=== PATIENT | male | born 1950 | race Caucasian/White ===

== ENCOUNTER → 2017-07-06 | Outpatient (CLI) | payer OTHER, MEDICARE ==
[~2017-07-06] MED LIST: GADOBUTROL 10 ML VIAL IVP ONE
== END ==
LOC: FIMAGING 12:30
PROVIDERS: ATTEND Ophthalmology Pediatric Ophthalmology and Strabismus Specialist
DX: R90.82 White matter disease, unspecified (principal); I73.9 Peripheral vascular disease, unspecified; G31.9 Degenerative disease of nervous system, unspecified
CPT/HCPCS: 70553; A9585

== ENCOUNTER → 2017-07-15 | Outpatient (CLI) | payer OTHER, MEDICARE | LOC: CIMAGING 08:48 | DX: Z13.83 Encounter for screening for respiratory disorder NEC (principal) | CPT/HCPCS: 36415-PO; 71046-PO; 82164-90; 85025-PO; 85549-90; 85652-PO ==